=== PATIENT | male | born 1995 | race Caucasian/White ===

== ENCOUNTER 2025-05-15 15:10 | Emergency (ER) | payer MEDICAID, OTHER ==
[~2025-05-15] VITALS: Ht 182.9 cm; Wt 120.6 kg
[2025-05-15 15:14] VITALS: BP 146/95; PULSE 18; O2SAT 98
[2025-05-15] MEDS ORDERED: LORA-269 PO (16:57)
--- NOTE | 2025-05-15 17:00 | Physician Documentation ---
History of Present Illness ~ Chief Complaint: Anxiety Stated Complaint: PANIC ATTACK Time Seen by MD: 15:48 HPI 30-year-old male presents to the emergency department with complaint of anxiety. Reports for the last three months he has been dealing with significant anxiety that knees and incapacitated at times. Reports a prior history of mild anxiety usually your and then three months ago smoked some marijuana which she feel it was may have triggered anxiety and making it worse. Problems with sleep, headache problems with concentration and crying. Symptoms did begin to resolve at the by month and a half and then re-presented after patient again trialed marijuana. He denies SI or HI and states he only drinks occasionally. Denies other recreational drug use or prior history of. He is accompanied in the Emergency Department with his mom. He has scheduled psychiatry follow up this Friday. Medication Reconciliation Allergies: Coded Allergies: No Known Allergies (Unverified , 05/15/25) Review of Systems All Other Systems at this time: Reviewed and Negative Constitutional: Reports: other (Anxious depressed) Eyes: Reports: no symptoms reported Respiratory: Reports: no symptoms reported Cardiovascular: Reports: no symptoms reported Gastrointestinal: Reports: no symptoms reported Genitourinary: Reports: no symptoms reported Male Genitalia: Reports: no symptoms reported Neurological: Reports: no symptoms reported Musculoskeletal: Reports: no symptoms reported Integumentary: Reports: no symptoms reported Allergic/Immunologic: Reports: no symptoms reported Hematologic/Lymphatic: Reports: no symptoms reported Endocrine: Reports: no symptoms reported Psychiatric: Reports: depression, anxiety, sleeplessness; Denies: suicidal Physical Exam Vital Signs: Temperature: 98.2, Heart Rate: 18, Respiratory Rate: 18, BP: 146/95, Pulse Oximetry: 98, Weight: 120.600 Progress Results/Orders Results/Orders Vital Signs 05/15/25 05/15/25 05/15/25 15:14 17:31 17:54 Temp 98.2 98.2 Pulse 18 Resp 18 16 B/P (MAP) 146/95 Pulse Ox 98 Departure Disposition: 01 HOME / SELF CARE / HOMELESS Impression: Primary Impression: Anxiety Condition: Improved Discharge Instructions: Panic Attack Additional Instructions: Please keep scheduled follow up appointment with Psychiatry on Friday. Please take Benadryl as needed for anxiousness and Ativan as directed. Return to the emergency department for any thoughts of self-harm or harm to others. Thank you for visiting emergency department [facility]. Referrals: NO PRIMARY CARE PROVIDER (PCP) Prescriptions Lorazepam (Ativan) 0.5 Mg Tablet 1 TAB PO BID PRN for anxiety for 5 Days, #9 TAB 0 Refills Prov: ROWDY DEL VALLE MD 05/16/25 Education Educated: Patient, Family Educated regarding: diagnosis, treatment Signature Scribe Signature: . Attestation: . DHIRAJ PULIDO PAC May 15, 2025 17:00 ROWDY DEL VALLE MD May 16, 2025 18:16
[2025-05-15 17:31] VITALS: RESP 16
[2025-05-15 17:54] VITALS: TEMP 98.2
[2025-05-16] MEDS ORDERED: LORA-268 PO ×2 (14:16→18:14)
== END 2025-05-15 17:55 | disposition home or self-care (01) ==
LOC: ER 15:11
DX: F41.9 Anxiety disorder, unspecified (principal)
CPT/HCPCS: 99283